=== PATIENT | male | born 1950 | race Caucasian/White ===

== ENCOUNTER → 2017-08-20 | Outpatient (CLI) | payer OTHER ==
[~2017-08-20] MED LIST: BACT800T5 PO; BRAN1000 PO; CITA20TA4 PO; DICL1CAP4 PO; DICL75TA PO; FENT1SUB2; FENT25DI T-DERMAL; GABA300C5 PO; GABA600T PO; GLUC500T4 PO; HYDR-3535 PO; MULT-65 PO; SIMV40TA PO; VITA1000 PO; VITA200C3 PO; VITA500C18 PO; VITACAP7 PO; ZOLP5TAB3 PO; statin
== END ==
LOC: EDSTATUS 12:00 → CPRE 12:04
PROVIDERS: ATTEND Neurological Surgery
DX: M48.06 Spinal stenosis, lumbar region (principal)

== ENCOUNTER → 2017-08-25 | Day surgery (SDC) | payer OTHER ==
--- NOTE | 2017-08-24 19:20 | MH ---
cc: CAROL ORR ROHIT K. M.D. DATE OF ADMISSION 08/25/2017 ADMISSION DIAGNOSIS Lumbar spinal stenosis. HISTORY OF PRESENT ILLNESS This is a 66-year-old male who presented to us in November 2016 for evaluation of cervical, thoracic and lumbar spine pain. At that time he stated that his worst pain was his low back which he rated as 08/10, extending into the right flank and therefore an MRI of the lumbar spine and thoracic spine was obtained. He also has a history of chronic neck pain that he rates as 5-6/10. He states he has had the right flank pain for almost a year and the chronic low back pain that he has had for years. He states the low back pain radiates into the right lateral thigh and calf. He states the pain in the low back gets worse after standing or walking after 30 minutes and improves if he sits. He has numbness in the top and bottom of his right foot which is chronic. He denies any weakness in the lower extremities or any bowel or bladder incontinence. He has had pain management with several injections in his lower back over the years and states that they do not last long. He was seen again for reevaluation on August 12, 2017 again complaining that he has pain that feels like a hot poker sticking into his right kidney area. He states he has right lateral thigh numbness and tingling that he has had since his last surgery. He has been to physical therapy and was able to do 3 weeks but did not have any improvement in symptoms and they informed him that there was nothing more that they could do for him. PAST MEDICAL HISTORY Significant for: 1. Hyperlipidemia. 2. Right shoulder surgery for rotator cuff. 3. Previous lumbar spine surgery. 4. Surgery on his scrotum. CURRENT MEDICATIONS He takes: 1. Gabapentin 300 milligrams q.h.s. 2. Diclofenac 75 mg b.i.d. this was placed on hold prior to surgical intervention. ALLERGIES He has no known drug allergies. FAMILY HISTORY His mother is alive 96 years old. His father is alive 89 years old. He has a sister who is 63, another that is 59 and another at 50. He has a brother who is 65, 57, 55, 53, 51 and 45. SOCIAL HISTORY He is . He has children. He does not smoke and has not previously smoked. He drinks rarely, approximately one alcoholic beverage per month. REVIEW OF SYSTEMS CONSTITUTIONAL: He denies any fever or chills. EARS, NOSE, AND THROAT: No pharyngitis or exudate or bloody drainage from his nose. CARDIOVASCULAR: He denies any chest pain, palpitations. RESPIRATORY: No cough or shortness of breath. GASTROINTESTINAL: No nausea or vomiting, abdominal pain. GENITOURINARY: No dysuria or hematuria. MUSCULOSKELETAL: Positive for neck and low back pain. NEUROLOGICAL: No difficulty with speech. Positive for some difficulty with memory. PSYCHIATRIC: No anxiety or depression symptoms. INTEGUMENT: No rashes or pruritus. ENDOCRINE: No polyuria. HEMATOLOGIC: No bruising or bleeding tendencies. PHYSICAL EXAMINATION HEAD: Normocephalic, atraumatic. NECK: Supple. No carotid bruits heard on auscultation. LUNGS: Clear to auscultation bilaterally. HEART: Regular rate and rhythm. Normal S1-S2. ABDOMEN: Soft and nontender. Positive bowel sounds. SKIN: Reveals no cyanosis or erythema. MUSCULOSKELETAL: He has 5/5 strength in the lower extremities. He wears a right knee brace. He ambulates without any assistive device. NEUROLOGICAL: Awake and alert, oriented. Cranial nerves II through XII appear grossly intact. Speech is fluent. Comprehension is good. Right Achilles reflex is absent. Bilateral patellar reflexes are 2+. Left Achilles reflex is 2+. IMAGING Data reviewed, MRI of the lumbar spine from November 2016 was reviewed with the patient which reveals severe spinal stenosis at L2-L3 and L3-L4, some facet ligamentum flavum hypertrophy along with disk protrusion. He has a previous L4-L5, L5-S1 laminectomy defect. There is severe disk degeneration with complete disk height collapse at L2-L3, L3-L4, L4-L5, and L5-S1 in particular. PLAN We have discussed treatment options with the patient which include an L2-L4 decompressive laminectomy. He understands that this will not alleviate all of his pain given the multilevel degenerative disk disease with disk height collapse as well as a post-laminectomy syndrome with likely epidural scar tissue formation degeneration facet arthropathy. The procedure as well as the risks, benefits, alternatives and recovery time were explained in great detail with the patient. We have discussed the risks involved with surgery which include but not limited to bleeding, infection, muscle weakness, voice hoarseness, difficulty swallowing, heart attack, stroke, blood clots, scar tissue formation among others. We have discussed the alternatives to surgical intervention and also the risks and benefits of those. We have explained the procedure using spine models in the office and all of his questions were answered to his satisfaction. The patient understands the procedure as well as the risks involved and he is requesting that we proceed. He was therefore scheduled accordingly. DICTATED BY: Will Matamoros PA-C MD GREGORIO Jackson/KK /5:59 PM /6:51 PM
[~2017-08-25] VITALS: Ht 175.3 cm; Wt 69.0 kg
[~2017-08-25] MED LIST changes: +*HYDROmorphone PF 1 MG VIAL PERIprocedural Use ONLY ONE; +ACETAMINOPHEN 1000 MG/100 ML 100 ML IV ONE; +BUPIVACAINE/EPINEPHRINE 0.5% 50 ML VIAL ONE; +CHLORHEXIDINE GLUCONATE 2 % 1 PACK (2 CLOTHS) TOPICAL PRN; -DICL1CAP4 PO; +DO NOT ADM ANY ANTICOAGULANT DRUGS PRN; -FENT1SUB2; -GABA600T PO; +GELFOAM SIZE 100 ONE; +GLYCOPYRROLATE 1 MG/5 ML SYRINGE IV PUSH ONE; +INSULIN HUMAN REGULAR 1,000 UNITS/10 ML VIAL SQ PRN; +LACTATED RINGER'S 1000 ML IV PRN; +LEVOFLOXACIN 500 MG PREMIX INJ 100 ML IV ONE; +LIDOCAINE HCL 1% PF 5 ML AMPULE OTHER ONE; +METOPROLOL TARTRATE 25 MG TAB PO PRN; +NEOSTIGMINE 3 MG/3 ML SYR IV ONE; +ONDANSETRON HCL 4 MG/2 ML VIAL IV PUSH ONE; +PHENYLEPH/NS 1000 MCG/10 ML SYR IV ONE; +PHENYLEPHRINE HCL 10 MG/ML VIAL IV ONE; +POVIDONE IODINE 5% (ANTISEPSIS KIT) 4 APPLICATIONS EACH NARE PRN; +PROPOFOL 200 MG/20 ML AMP IV ONE; +ROCURONIUM INJ 50 MG/5 ML SYRINGE IV PUSH ONE; +SODIUM CHLOR 0.9% 1000 ML INJ 1,000 ML IV SCH; +SODIUM CHLOR 0.9% 250 ML INJ 250 ML ONE; +SODIUM CHLORID 0.9% 500 ML IV PRN; +THROMBIN (TOPICAL) 5,000 UNIT VIAL ONE; +VANCOMYCIN HCL 1000 MG ON-CALL/NS 250 ML IV SCH; +VANCOMYCIN HCL 1000 MG VIAL ONE; +ePHEDrine/NS 25 MG/5 ML SYR IV ONE; +methylPREDNISolone ACETATE 40 MG/ML VIAL ONE; -statin
--- NOTE | 2017-08-25 14:16 | RADRPT ---
EXAM DATE/TIME: 08/25/2017 11:42 [facility] COMPARISON: No previous studies available for comparison. INDICATIONS : L2-L3, L3-L4 Lumbar Laminectomies. Level localization. MEDICAL HISTORY : None. SURGICAL HISTORY : Lumbar Laminectomy. ENCOUNTER: Subsequent ACUITY: 1 day PAIN SCORE: Non-responsive. LOCATION: Lumbar spine. FINDINGS: 2 spot intraoperative fluoroscopic crosstable lateral views of the lower lumbar spine demonstrate loc alization hardware projecting posterior to the L4 vertebral body and the L2 vertebra. CONCLUSION: Localization as above. Robert Lawler MD on August 25, 2017 at 14:14 Board Certified Radiologist. This report was verified electronically.
--- NOTE | 2017-08-25 14:40 | PD.OP ---
Operative Report Date of Surgery: Aug 25, 2017 Preoperative Diagnosis: Lumbar L2-3, L3-4 spinal stenosis with facet hypertrophy and associated back pain with neurogenic claudication/radiculopathy; postlaminectomy failed back syndrome Postoperative Diagnosis: Same Procedure: Lumbar L2, L3 and L4 decompressive laminectomy with medial facetectomy and foraminotomy; microsurgical technique Anesthesia: Gen. endotracheal by Alex Quiñones Surgeon: Austin Moraes M.D. Wheel Presser(s): Estefani Strange Operation and Findings: Following administration of general endotracheal anesthesia, patient received vancomycin 1 g intravenously. Sequential compression devices were placed for DVT prophylaxis. He was then turned in prone position on Ish frame and the Sandeep table and all pressure points adequately padded. The lumbar region was then shaved and prepped with a Betadine and ChloraPrep. Sterile draping undertaken with Ioban. Midline incision overlying the L2-L4 level was then made after infiltrating the skin with 0.5% Marcaine with epinephrine solution. The skin incision was made extending down through the fascia and then using the subperiosteal plane on the right side the muscular attachments to the spinous process and lamina were detached. Intraoperative fluoroscopy was used for level confirmation and further dissection undertaken using microtechnique with microscope magnification. The inferior portion of the right L3, L4 lamina and superior portion of the L5 lamina was then drilled out and the underlying ligamentum flavum also removed. There was facet arthropathy noted in the medial portion of facet was also resected and the lateral recess decompressed. Epidural venous stasis which he with the bipolar cautery along with Gelfoam and thrombin and bone wax used at the laminotomy edges for hemostasis. With gentle thecal sac retraction and medial facetectomy from hypertrophied ligamentum flavum and lateral recess stenosis on the right L3-4 and L2-3 level was also undertaken for circumferential spinal canal decompression. The area was then copiously irrigated with vancomycin solution. The retractors removed and the muscle fascia proximal using 2-0 Vicryl interrupted stitches. 3-0 Vicryl subcuticular stitches were also placed in an interrupted fashion and planned skin closure was with Mastisol and Steri-Strips. A sterile dressing was then applied and the patient then turned in the supine position and extubated and taken to recovery room in stable condition. There were no intraoperative complications and all sponge and needle count was correct at the end of the procedure. Estimated blood loss about 150 cc. Austin Moraes MD Aug 25, 2017 14:40
[2017-08-25 16:15] VITALS: BP 113/71; PULSE 91; RESP 18; TEMP 97.8; O2SAT 96
== END | disposition home or self-care (01) ==
LOC: HSDC 08:13
PROVIDERS: ATTEND Neurological Surgery
DX: M48.06 Spinal stenosis, lumbar region (principal); E78.5 Hyperlipidemia, unspecified; Z79.899 Other long term (current) drug therapy
CPT/HCPCS: 00670; 63047; 63048; 72020; 76000; J0131; J1170; J1956; J2370; J2405; J2710; J3010; J3370; J7050; J7120; J1030